=== PATIENT | male | born 1950 | race Caucasian/White ===

== ENCOUNTER 2019-03-10 19:28 | Emergency (ER) | payer MEDICARE ==
--- NOTE | 2019-03-10 19:50 | RAD ---
RADIOGRAPH CHEST 2 VIEWS: DATE: 03/10/2019 HISTORY: 69-year-old male with cough and fever FINDINGS: There is no airspace density, pulmonary edema, pleural effusion, pneumothorax, or cardiomegaly. IMPRESSION: No acute cardiopulmonary findings.
[2019-03-10 20:17] LABS: #Eosinphils 0.2 thou/uL (0.0-0.7); #Lymphocytes 1.6 thou/uL (1.20-3.40); #Monocytes 1.3 thou/uL (0.11-0.59); #Neutrophils 6.4 thou/uL (1.40-6.50); %Eosinophils 2.6 % (0.0-10.0); %Lymphocytes 16.6 % (21.0-51.0); %Monocytes 13.6 % (0.0-10.0); %Neutrophils 67.2 % (42.0-75.0); Hemoglobin 15.3 g/dL (14.0-18.0); Mean Corpuscular HGB CONC 33.7 g/dL (32.0-36.0); Mean Corpuscular Hemoglobin 32.4 pg (27.0-31.0); Mean Corpuscular Volume 96.2 fL (78.0-98.0); Mean Platelet Volume 7.7 fL (7.4-10.4); Platelet Count 167 thou/uL (130-400); RBC Distribution Width 12.1 % (11.5-14.5); Red Blood Cell (RBC) Count 4.72 mill/uL (4.70-6.10); White Blood Cell (WBC) Count 9.6 thou/uL (4.8-10.8)
[2019-03-10 20:36] LABS: ALT (SGPT) 16 U/L (8-55); AST (SGOT) 21 U/L (5-34); Albumin 3.9 g/dL (3.4-4.8); Alkaline Phosphatase 71 U/L (40-150); Anion Gap 14 mmol/L (10-20); BUN (Urea Nitrogen) 25 mg/dL (8.4-25.7); Bilirubin, Total 0.5 mg/dL (0.2-1.2); Calc. Creatinine Clearance 0 mL/min (70-130); Calcium 9.2 mg/dL (7.8-10.44); Carbon Dioxide 27 mmol/L (23-31); Chloride 98 mmol/L (98-107); Estimated GFR-MDRD 59; Globulin 3.7 g/dL (2.4-3.5); Glucose 112 mg/dL (80-115); Potassium 5.1 mmol/L (3.5-5.1); Protein, Total 7.6 g/dL (5.8-8.1); Sodium 134 mmol/L (136-145)
[2019-03-10] MEDS ORDERED: Albuterol Sulfate 2.5 mg/3 ml Neb ONE ×2 (20:51)
[2019-03-10] MEDS ORDERED: predniSONE 20 MG TAB ONE ×2 (22:13→22:15)
== END 2019-03-10 22:24 | disposition home or self-care (01) ==
LOC: ERS 19:28
DX: R05 Cough (principal); R50.9 Fever, unspecified; R06.2 Wheezing; I10 Essential (primary) hypertension; E78.5 Hyperlipidemia, unspecified; Z79.899 Other long term (current) drug therapy; Z86.718 Personal history of other venous thrombosis and embolism; Z86.711 Personal history of pulmonary embolism; Z79.01 Long term (current) use of anticoagulants
CPT/HCPCS: 36415; 71046; 80053; 85025; 87040; 87077; 87149; 94640; J7512; J7611; J7620

== ENCOUNTER 2019-10-08 07:55 | Outpatient (CLI) | payer MEDICARE ==
--- NOTE | 2019-10-08 09:53 | CT ---
CT ABDOMEN AND PELVIS WITH AND WITHOUT CONTRAST: History: Hematuria. History of prostate cancer. Comparison: None. Findings: Lung bases are clear. No pericardial effusion. On the noncontrast portion of the examination there is no nephroureterolithiasis or hydroureteronephr osis. No secondary evidence of a recently passed stone. Mild scarring around the prostate likely from prior treatment changes. Simple exophytic cysts interpolar right kidney. Small hypodensity anterior cortex interpolar right ki dney too small fully characterize although likely a cyst. Interpolar hypodensity partially and endophytic does not have any significant enhancement measuring 6 mm also likely a cyst. Hypodensity w hich is endophytic interpolar region right kidney has indeterminate enhancement. There is a 2 small characterize 7 mm hypodensity anterior cortex interpolar left kidney. No dilated loops of large or small bowel. The appendix is felt to be visualized and is normal. No ret roperitoneal periaortic adenopathy. No acute osseous abnormality. 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 There is osseous neural foraminal narrowing at L4/L5 and L5/S1. Narrowing of the interspinous space L2-L5. On the delayed phase of contrast there are no filling defects within the renal calyces, pelvises, ure ters, nor posterior urinary bladder. Impression: 1. No nephroureterolithiasis or hydroureteronephrosis. No secondary evidence of a recently passed sto ne. 2. Indeterminant enhancement of an interpolar posterior cortex right renal mass 2.6 cm. Follow-up kerwin pr protocol MRI in 6 months recommended. 3. Multiple bilateral renal cysts. 4. Mild scarring in the periprostatic fat likely treatment-related. Transcribed Date/Time: 10/08/2019 10:03 AM
[2019-10-08] MEDS ORDERED: Iopamidol-370 76% 500 ML 1 ML ONE (15:49)
== END 2019-10-08 07:56 | disposition home or self-care (01) ==
LOC: BICCT 07:55
PROVIDERS: ATTEND Urology
DX: R31.21 Asymptomatic microscopic hematuria (principal); N28.1 Cyst of kidney, acquired; N28.89 Other specified disorders of kidney and ureter; N42.89 Other specified disorders of prostate
CPT/HCPCS: 74178; 82565; Q9967

== ENCOUNTER 2019-10-28 12:56 | Emergency (ER) | payer MEDICARE ==
[2019-10-28] MEDS ORDERED: Clindamycin/D5W 600 mg/50 ml Premix Bag ONE (13:49)
--- NOTE | 2019-10-28 15:11 | ULT ---
EXAM: Left lower extremity venous ultrasound HISTORY: Left lower extremity pain and edema COMPARISON: None TECHNIQUE: Multiplanar grayscale and color Doppler images were obtained in a left lower extremity otilio ous ultrasound. Spectral analysis of the Doppler waveforms were performed. FINDINGS: The common femoral vein, profunda femoral vein, superficial femoral vein, and popliteal vei n are normal in appearance without visible thrombus. These vessels demonstrate normal compression, flow, and augmentation. The posterior tibial vein and greater saphenous vein are patent without evidence of thrombus. IMPRESSION: No evidence of DVT.
== END 2019-10-28 16:06 | disposition home or self-care (01) ==
LOC: ERS 12:56
DX: L03.116 Cellulitis of left lower limb (principal); E78.5 Hyperlipidemia, unspecified; I10 Essential (primary) hypertension; I48.91 Unspecified atrial fibrillation; Z79.899 Other long term (current) drug therapy; Z86.711 Personal history of pulmonary embolism; Z86.718 Personal history of other venous thrombosis and embolism; Z79.01 Long term (current) use of anticoagulants
CPT/HCPCS: 96365; 96366; J3490

== ENCOUNTER 2023-08-31 10:20 | Emergency (ER) | payer MEDICARE ==
[2023-08-31 11:09] LABS: Bacteria/HPF 4+ HPF (None Seen); Bilirubin Negative (Negative); Blood, Urine 2+ (Negative); CAUTI Indications for Culture Dysuria,urgency,freq; Clarity Turbid (Clear); Glucose, Urine (Dipstick) Normal (Negative); Ketone, Urine Negative (Negative); Leukocyte 500 Leu/uL (Negative); Nitrite 1+ (Negative); Protein, Urine (Dipstick) 70 mg/dL (Neg-Trace); Specific Gravity, Urine 1.024 (1.002-1.036); Squamous Epithelial None Seen HPF (0-3); Urobilinogen Normal mg/dL (Less than 2); WBC/HPF Greater than 50 HPF (0-3)
[2023-08-31 11:13] LABS: Urine Culture Reflex Yes Yes
[2023-08-31 11:14] LABS: #Eosinphils 0.1 thou/uL (0.0-0.7); #Monocytes 1.5 thou/uL (0.11-0.59); #Neutrophils 8.5 thou/uL (1.40-6.50); %Basophils 0.2 % (0.0-1.0); %Eosinophils 0.8 % (0.0-10.0); %Lymphocytes 8.4 % (21.0-51.0); %Monocytes 13.2 % (0.0-10.0); %Neutrophils 76.1 % (42.0-75.0); Hematocrit 43.4 % (42.0-52.0); Hemoglobin 14.2 g/dL (14.0-18.0); Mean Corpuscular HGB CONC 32.7 g/dL (32.0-36.0); Mean Corpuscular Hemoglobin 31.4 pg (27.0-31.0); Platelet Count 195 10x3/uL (130-400); RBC Distribution Width 12.9 % (11.5-14.5); Red Blood Cell (RBC) Count 4.52 mill/uL (4.70-6.10); White Blood Cell (WBC) Count 11.2 10x3/uL (4.8-10.8)
[2023-08-31 11:32] LABS: ALT (SGPT) 13 U/L (8-55); AST (SGOT) 13 U/L (5-34); Albumin 3.6 g/dL (3.4-4.8); Alkaline Phosphatase 72 U/L (40-110); Anion Gap 12 mmol/L (10-20); BUN (Urea Nitrogen) 23 mg/dL (8.4-25.7); Bilirubin, Total 1.1 mg/dL (0.2-1.2); Calc. Creatinine Clearance 0 mL/min (70-130); Calcium 9.3 mg/dL (7.8-10.44); Carbon Dioxide 28 mmol/L (23-31); Chloride 100 mmol/L (98-107); Estimated GFR 71; Globulin 3.7 g/dL (2.4-3.5); Glucose 93 mg/dL (83-110); Potassium 4.2 mmol/L (3.5-5.1); Protein, Total 7.3 g/dL (5.8-8.1); Sodium 136 mmol/L (136-145)
[2023-08-31] MEDS ORDERED: cefTRIAXone (ROCEPHIN) 2 GM VIAL ONE (11:36)
[2023-08-31] MEDS ORDERED: Sodium Chloride 0.9% 100 ML ONE (11:37)
== END 2023-08-31 13:34 | disposition home or self-care (01) ==
LOC: ERS 10:20
DX: N45.2 Orchitis (principal); E78.5 Hyperlipidemia, unspecified; I10 Essential (primary) hypertension; I48.91 Unspecified atrial fibrillation; Z79.899 Other long term (current) drug therapy; Z79.01 Long term (current) use of anticoagulants
CPT/HCPCS: 36415; 76870; 80053; 81001; 83605; 85025; 87040; 87077; 87086; 87186; 93976; 96365; J0696; J3490

== ENCOUNTER 2023-09-06 16:36 | Outpatient (CLI) | payer MEDICARE | END 2023-09-06 16:37 | disposition home or self-care (01) | LOC: SCSRAD 16:36 | PROVIDERS: ATTEND Nurse Practitioner Family | DX: M79.641 Pain in right hand (principal); W19.XXXA Unspecified fall, initial encounter ==

== ENCOUNTER 2025-07-08 11:49 | Outpatient (CLI) | payer MEDICARE | END 2025-07-08 11:50 | disposition home or self-care (01) | LOC: BICRAD 11:49 | PROVIDERS: ATTEND Family Medicine | DX: M25.531 Pain in right wrist (principal); M19.041 Primary osteoarthritis, right hand ==